=== PATIENT | male | born 1990 | race African-American/Black ===

== ENCOUNTER 2021-10-25 13:55 | Emergency (ER) | payer OTHER ==
[~2021-10-25] VITALS: Ht 182.9 cm; Wt 63.5 kg
[2021-10-25 14:11] VITALS: BP 119/70
== END 2021-10-25 15:01 | disposition left against medical advice (07) ==
LOC: ER 13:55
DX: M54.9 Dorsalgia, unspecified (principal); Z53.21 Procedure and treatment not carried out due to patient leaving prior to being seen by health care provider